=== PATIENT | male | born 1985 | race Caucasian/White ===

== ENCOUNTER → 2017-08-07 16:21 | Outpatient (CLI) | payer MEDICAID, SELFPAY ==
--- NOTE | 2017-08-07 12:44 | CYST_PTH ---
PATIENT: SHAY VERDIN LOC: [facility] U#:[id number] AGE/SX: 39/M ROOM: RE08/07/[address]: Dr. Kyle Morris MD : [id number] BED: DIS: SPEC #: [id number] RECD: 08/07/17 16:02 STATUS: TREE PARTHA #: [id number] KRISTIN: 08/07/17 12:[address]: Kyle Morris DEPT: SURGICAL PATHOLOGY RECD BY: Lacey Madrid ENTERED: 08/08/17 09:47 SP TYPE: Cyst OTHR DR: SELENA Tissues: Sebaceous gland Procedures: Surgery Specimen Level III HEADER OPERATION: Excision sebaceous cyst, left neck PRE-OP DIAGNOSIS: Localized swelling, mass and lump, neck TISSUE SUBMITTED: Left neck mass MICROSCOPIC DIAGNOSIS Left neck mass, excision: Epidermal inclusion cyst. JHONY:marlon 08/09/17 MICROSCOPIC DESCRIPTION Slides are reviewed. GROSS DESCRIPTION Received is one container labeled with the patient's name and not further designated. The specimen consists of a smooth, glistening cystic structure measuring 2 x 1.6 x 1.5 cm. The external surface is light mccormick in color. Sections reveal a granular cut surface. The specimen is sectioned and totally submitted in two cassettes. / AM:marlon 08/08/17 TC:5 CPT: 58517
== END ==
PROVIDERS: Visit Provider Otolaryngology
DX: R22.1 Localized swelling, mass and lump, neck (principal)
CPT/HCPCS: 88304